=== PATIENT | female | born 1945 | race Caucasian/White ===

== ENCOUNTER 2023-10-17 14:00 | Emergency (ER) | payer MEDICARE ==
[~2023-10-17] VITALS: Ht 162.6 cm; Wt 59.0 kg
[2023-10-17 15:47] VITALS: BP 126/109
[2023-10-17 16:01] VITALS: BP 136/64
[2023-10-17 16:31] VITALS: BP 130/66
[2023-10-17 20:51] VITALS: BP 117/60
== END 2023-10-17 21:00 | disposition home or self-care (01) ==
LOC: ED 14:00
DX: M71.22 Synovial cyst of popliteal space [Baker], left knee (principal); I10 Essential (primary) hypertension; M79.662 Pain in left lower leg